=== PATIENT | male | born 1930 | race Caucasian/White ===

== ENCOUNTER 2017-04-05 15:58 | Inpatient (IN) | payer MEDICARE, OTHER ==
[2017-04-05] VITALS (9 sets, daily range): BP systolic 86–129; BP diastolic 42–70; PULSE 91–119; RESP 18–33; O2SAT 91–95
[~2017-04-05] VITALS: Ht 172.7 cm; Wt 73.3 kg
--- NOTE | 2017-04-05 16:23 | ED.REPORT ---
HPI-Dyspnea / Wheezing Date of Service Apr 05, 2017 ED Provider: Ken Ngo MD The pt is an 86 y.o. male with a hx of HTN who presents to the ED via EMS complaining of shortness of breath, onset 3 hours ago while he was resting. Associated sx include nausea today, generalized weakness, rhinorrhea, cough, diaphoresis, and shaking. His BP was over 200 today. The EMS recorded his blood sugar at 120. He denies chest pain, abdominal pain, fever, diarrhea, and dysuria. As per the son, the pt vomited a week ago that he associated with bad food but he was the only one sick. He has not vomited since then. His last hospitalization was at [facility] two and a half years ago where he had an aortoiliac stent placed and then some sort of interventional procedure for aneurysm. The pt takes benazepril only when his BP goes over 150. Nursing Notes Stated Complaint: SHORTNESS OF BREATH, LEG PAIN Chief Complaint: General Complaint Nursing Notes Reviewed: Yes Allergies: Coded Allergies: No Known Allergies (Unverified , 04/05/17) General Time Seen by MD: 16:22 Chief Complaint Shortness of breath Hx Obtained From: Patient Arrived By: Walk-in Sudden in Onset?: Yes Onset Occurred: 1 - 4 hours ago Symptom Duration: Since onset Severity: Current: No pain currently Severity: Maximum: No pain Recent Healthcare: Recent doctor visit Past Medical History Past Medical History Notes: PCP: EJ Cruz Past Medical History Reports: Hypertension Past Surgical History aotoiliac stent placement Smoking History Unknown if Ever Smoker Social History Lives with in [place]. Currently visiting/living with and daughter in [place]. Other Social History: Good social support, Ambulatory Status Cane Review of Systems Constitutional: Reports: Weakness - generalized, Denies: Fever Respiratory: Reports: Non-productive cough, Shortness of breath Cardiovascular: Denies: Chest pain Skin: Reports Diaphoresis Allergy / Immune: Reports: Rhinorrhea Complete sys rev & neg: except as marked. GI: Reports: Nausea, Denies: Abdominal pain, Diarrhea, Vomiting Female: Denies: Dysuria Neurologic: Reports: Shaking Physical Exam Initial Vital Signs Vital Signs (First) Date Time Temp Pulse Resp B/P Pulse Ox O2 Delivery O2 Flow Rate FiO2 04/05/17 16:14 37.4 112 18 129/61 95 Nasal Cannula 4 Initial VS: Reviewed Head / Eyes: Atraumatic, Normocephalic Extremities: Vascular intact, Neuro intact, No swelling, No tenderness Skin: Warm, Dry, No cyanosis Neurologic: Alert, Oriented, Nonfocal General/Constitutional: Awake, Alert, Cooperative Neck: Atraumatic, Supple, Full range of motion Respiratory / Chest: Atraumatic, Breath sounds = bilat, No respiratory distress , No rales, No rhonchi, No wheezing Crackles bilaterally Cardiovascular: Heart rate NL, Heart sounds NL, No gallop, No rubs Heart Rate / Rhythm: Positive: Irreg irregular rhythm Heart Sounds / Murmur: Positive: Murmur present... (II/ at the lower right sternal border. ) Abdomen: Atraumatic, Soft, Non-tender, No guarding, No rebound, BS normoactive No abdominal bruit. Back: Atraumatic, Full range of motion, Painless range of motion, No CVA tenderness Interpretation & Diagnostics Lab Results Interpretation Result Diagram: 04/05/17 1633 04/05/17 1633 Test 04/05/17 16:33 04/05/17 16:55 04/05/17 17:57 White Blood Count 8.8th/mm3 (3.8-10.1) Red Blood Count 4.51mil/mm3 (4.40-5.80) Hemoglobin 14.2g/dL (13.8-17.2) Hematocrit 41.1% (41.0-50.0) Mean Corpuscular Volume 91.1fL (81-100) Mean Corpuscular Hemoglobin 31.5pg (27.0-35.0) Mean Corpuscular Hemoglobin Concent 34.5% (32.0-37.0) Red Cell Distribution Width 13.0% (12.3-15.4) Platelet Count 187bil/L (150-400) Neutrophils (%) (Auto) 89.5% (40-74) Lymphocytes (%) (Auto) 6.0% (14-46) Monocytes (%) (Auto) 4.0% (4-12) Eosinophils (%) (Auto) 0.2% (0-5) Basophils (%) (Auto) 0.1% (0-3) D-Dimer 7.85mg/L FEU (<0.50) Sodium Level 138mEq/L (134-144) Potassium Level 4.1mEq/L (3.5-5.2) Chloride Level 100mEq/L (97-108) Carbon Dioxide Level 22mmol/L (18-29) Blood Urea Nitrogen 18mg/dL (8-27) Creatinine 0.77mg/dL (0.76-1.27) Estimat Glomerular Filtration Rate 102mL/min (>59) Glucose Level 126mg/dL (60-99) Calcium Level 9.9mg/dL (8.5-10.1) Magnesium Level 1.6mg/dL (1.6-2.6) Total Bilirubin 0.8mg/dL (0.0-1.2) Aspartate Amino Transf (AST/SGOT) 21U/L (0-50) Alanine Aminotransferase (ALT/SGPT) 17U/L (0-44) Alkaline Phosphatase 103U/L (25-160) Total Protein 6.9g/dL (6.4-8.4) Albumin 3.9g/dL (3.4-5.0) Procalcitonin 0.13ng/mL (0.00-0.08) Lactic Acid Level 1.7mmol/L (0.4-2.0) Urine Color Yellow (YELLOW) Urine Appearance Hazy (CLEAR,HAZY) Urine pH 7.5 (5.0-8.0) Urine Specific [place] 1.020 (1.003-1.035) Urine Protein Tracemg/dL (NEG,TRACE) Urine Glucose (UA) Negativemg/dL (NEGATIVE) Urine Ketones Negativemg/dL (NEGATIVE) Urine Occult Blood Large (NEGATIVE) Urine Nitrite Negative (NEGATIVE) Urine Bilirubin Negative (NEGATIVE) Urine Urobilinogen Normalmg/dL (NORMAL) Urine Leukocyte Esterase Negative (NEGATIVE) Urine RBC >50/hpf (0-2) Urine WBC 0-5/hpf (0-5) Urine Epithelial Cells Occasional/hpf (NONE-MOD) Urine Crystals None seen (NONE SEEN) Urine Bacteria None/hpf (NONE-FEW) Urine Hyaline Casts None/lpf (NONE) Urine Granular Casts None seen (NONE SEEN) Urine Waxy Casts None seen (NONE SEEN) Urine Red Blood Cell Casts None seen (NONE SEEN) Urine White Blood Cell Casts None seen (NONE SEEN) Urine Mucus None seen (None Seen) Urine Trichomonas None seen (NONE SEEN) Urine Yeast None (NONE SEEN) Urinalysis Comment None Urine Culture Reflexed Not indicated ECG Interpretation ECG Interpretation: Pacemaker artifacts. Sinus tachycardia. Rate 114. Atrial premature complex. No acute ST segment changes. Time: 16:31 Interpreted by: ED physician X-Ray Chest Interpretation Chest Xray Interpretation: IMPRESSION: Left basilar/retrocardiac opacity as well as potential streaky opacity in the right base. Findings are suggestive of pneumonia. Dictated by: Petra Lizama M.D. on 04/05/2017 at 16:45 Approved by: Petra Lizama M.D. on 04/05/2017 at 16:45 View: Portable, 1 view Interpretation / Wet Read by: Interpret - Radiologist CT Chest Interpretation IMPRESSION: No evidence for pulmonary embolus. Bilateral pneumonias are present left greater than right. Findings correspond to a chest x-ray. Dictated by: Rico Wilburn M.D. on 04/05/2017 at 19:05 Approved by: Rico Wilburn M.D. on 04/05/2017 at 19:09 Study type: CT pulm angiogram Interpretation / Wet Read by: Interpret - Radiologist Re-Eval/Medical Decision Med Decision/Clinical Course 86 year-old male with gen weakness vomiting and dyspnea. Has infiltrate on CXR, dimer elevated, CT angio of chest is negative. Blood cultures obtained and coverage for community acquired pneumonia started with rocephin and azithro. BP dropped while he was here, NS x1 L started. Will admit to hospitalist. Noted history of AAA but no abdominal pain or tenderness. Source of Hx: Old records Re-Evaluation/Progress #1: Time of Eval: 17:37 Re-Evaluation/Progress Note: Discussed imaging results and plan to admit. The pt understands and agrees with the plan. All questions answered. Re-Evaluation/Progress #2: Time of Eval: 17:52 Re-Evaluation/Progress Note: Discussed the plan to do a CT. The pt understands and agrees with the plan. All questions answered. Consultation : Referral / Consult Name: Betty Pace DO Consulted With: Hospitalist Call Returned at: 19:31 Hydrate Thickener Operator: Will see patient, Agrees with eval, Agrees with plan, Accepts admit Counseled Regarding: Diagnosis, Lab results, Need for admission Discharge & Departure Impression: Primary Impression: Pneumonia Pneumonia type: due to unspecified organism Laterality: bilateral Lung location: unspecified part of lung Qualified Code: J18.9 - Pneumonia, unspecified organism Disposition: ADMITTED TO HOSPITAL Referrals: OTHER,PHYSICIAN Scribe Attestation Portions of this note were transcribed by Matthew Munoz. I,, personally performed the history,physical exam and medical decision-making;I reviewed and confirmed the accuracy of the information in the transcribed note. Signed by Edison Pan. 04/05/17 Ken Ngo MD Apr 05, 2017 16:23 Matthew Munoz Apr 05, 2017 17:35
[2017-04-05 16:37] LABS: BASOPHILS % (AUTO) 0.1 % (0-3); EOSINOPHILS % (AUTO) 0.2 % (0-5); Mean Corpuscular Hemoglobin 31.5 pg (27.0-35.0); Mean Corpuscular Volume 91.1 fL (81-100); NEUTROPHILS % (AUTO) 89.5 % (40-74); Platelet Count 187 bil/L (150-400)
--- NOTE | 2017-04-05 16:47 | DRSVH ---
PROCEDURE: X-RAY CHEST ONE VIEW, PORTABLE ([id number]) INDICATIONS: FEVER TECHNIQUE: One view of the chest was acquired. COMPARISON: None. FINDINGS: Surgical changes and devices: None. Lungs and pleura: Slight appearance of increased retrocardiac and left basilar opacity. Questionable streaky opacity is present within the right base. Mediastinum: Mediastinal contours appear normal. Heart size is normal. Bones and chest wall: No suspicious bony lesions. Overlying soft tissues appear unremarkable. IMPRESSION: Left basilar/retrocardiac opacity as well as potential streaky opacity in the right base. Findings are suggestive of pneumonia. Dictated by: Petra Lizama M.D. on 04/05/2017 at 16:45 Approved by: Petra Lizama M.D. on 04/05/2017 at 16:45
[2017-04-05 17:10] LABS: TROPONIN T < 0.010 ug/L (0.0-0.011)
[2017-04-05 17:20] LABS: Magnesium 1.6 mg/dL (1.6-2.6)
[2017-04-05 18:08] LABS: APPEARANCE,URINE HAZY (CLEAR,HAZY); COLOR,URINE YELLOW (YELLOW); OCCULT BLOOD,URINE LARGE (NEGATIVE); PH,URINE 7.5 (5.0-8.0); UROBILINOGEN,URINE NORMAL (NORMAL)
--- NOTE | 2017-04-05 19:10 | DRSVH ---
PROCEDURE: CT ANGIO CHEST PULMONARY EMBOLISM ([id number]) INDICATIONS: dyspnea, tachycardia and elevated dimer TECHNIQUE: After the administration of intravenous contrast, 2 mm thick sections acquired from the pulmonary api cynthia to the posterior costophrenic angles. 3-dimensional maximum intensity projection (MIP) coronal a nd sagittal reformats were then acquired through the thorax. For radiation dose reduction, the follo wing was used: automated exposure control, adjustment of mA and/or kV according to patient size. COMPARISON: [facility], CR, XR CHEST 1VW (PORTABLE), 04/05/2017, 16:34. FINDINGS: Image quality: Good Pulmonary arteries: Pulmonary arteries are normal in size, and demonstrate no intraluminal filling d efects to suggest central pulmonary embolism. Lungs and pleura: Bibasilar left greater than right infiltrates are present consistent with pneumonia . No effusions. Mediastinum: Heart size is normal, without pericardial effusion. No mediastinal or hilar adenopathy . Thoracic aorta is normal in caliber and enhancement. Esophagus is normal in caliber, without hiat al hernia. Bones and chest wall: No suspicious bony lesions. Ribs and thoracic spine appear intact throughout. Thyroid gland is within normal limits. No axillary or supraclavicular adenopathy. Abdomen: Visualized upper abdominal solid organs appear normal in the early arterial phase of enhanc ement. IMPRESSION: No evidence for pulmonary embolus. Bilateral pneumonias are present left greater than rig ht. Findings correspond to a chest x-ray. Dictated by: Rico Wilburn M.D. on 04/05/2017 at 19:05 Approved by: Rico Wilburn M.D. on 04/05/2017 at 19:09
[2017-04-05] MEDS ORDERED: Azithromycin Inj 500 MG in Dextrose 5% w/Vial Mate 250 ML IV ONE (19:15)
[2017-04-05] MEDS ORDERED: cefTRIAXone Inj 2,000 MG in Dextrose 5% Minibag Plus 50 ML IV ONE (19:15)
[2017-04-05] MEDS ORDERED: Polyethylene Glycol (PEG) 17 Gm Powder PO PRN (19:45)
[2017-04-05] MEDS ORDERED: Alum-Mag Hydrox-Simeth 30 mL Suspension PO PRN (19:45)
[2017-04-05] MEDS ORDERED: Ondansetron 2 mg/mL 2 mL Inj IVPUSH PRN (19:45)
[2017-04-05] MEDS ORDERED: 0.9% Sodium Chloride 1,000 ML IV ONE (20:40)
--- NOTE | 2017-04-05 20:47 | PCM.HPMED ---
Subjective Date of Service Apr 05, 2017 Primary Provider: Admitting Physician: Betty Pace DO Primary Care Physician: William Attending Physician: Btety Pace DO Admit Status: From the Emergency Department, [facility] Telemetry Chief Complaint: Progressive weakness, new onset productive cough, chills, diaphoresis History of Present Illness: Mr. Guillaume is a pleasant 86-year-old gentleman with a minimal past medical history including hypertension and aortic aneurysm status post aorto iliac stent placement, presented to the emergency department, with family, with complaints of progressive weakness, weight loss, chills, fever, productive cough , diaphoresis. Initial workup in the emergency department revealed elevated d- dimer, which prompted a stat CTA which revealed no evidence for pulmonary emboli , but did reveal bilateral pneumonia with left greater than right infiltrates without presence of effusion, these findings were also evident in the chest x- ray which revealed left basilar and retrocardiac opacities with additional streaky opacities in the right base. Patient was admitted for evaluation and further treatment of suspected pneumonia, meeting sepsis criteria based on pulse of 119 and respiratory rate 33. - Hospital day 1 Patient is a pleasant 86-year-old gentleman reports no past medical history other than "intermittent" hypertension, of which, he reports taking benazepril only if needed. He notes that over the recent hours prior to admission, he experienced a coughing exacerbation with sputum production, with associated rhinorrhea, diaphoresis, chills, and fever. Denies any associated dysuria, abdominal pain, nausea, vomiting, headache, acute vision changes beyond baseline , or diarrhea. Admits to mild shortness of breath with the coughing fits, but denies any shortness of breath at baseline her prior to admission. Does note one episode of vomiting approximately one week ago. That has not recurred since , and blood was not present in the vomitus. Family is also present with the patient at time of admission, and they expressed significant concerns over weight loss of approximately 20-30 pounds over the recent year, and rapid decline in strength and mobility. Family reports that approximately one year ago to this date, patient was playing tennis, walking 3-5 miles daily, and overall better health. Patient admits to being unsteady on his feet, due to chronic vision changes, and progressively worsening weakness. Patient frequently travels between [place] and [place], and local provider is noted to be [facility], in [place]. Patient denies any other health conditions other than his hypertension and recent aortic aneurysm, denies any history of diabetes, asthma, COPD. In the ED, T 37.9, pulse 119, respiratory rate 33, BP 120/60, 93% on 4 L nasal cannula; initial labs revealed white count 8.8 with 89.5% neutrophils, hemoglobin 14.2, hematocrit 41.1, platelets 187, electro lites are within range , with glucose 126 and lactic acid 1.7, LFTs were within range, initial troponin T was negative; d-dimer was significantly elevated at 7.85, UA revealed large amount of occult blood with negative nitrite, negative leukocyte esterase, and no bacteria were seen. Initial therapies included ceftriaxone 2 g , azithromycin 500 mg, and Tessalon Perles; initial imaging included chest x- ray and CTA, which revealed left basilar and retrocardiac opacities in additional streaky opacities in the right base, indicative of pneumonia, no evidence of pulmonary emboli were seen. Patient was transported to medical floor in stable condition. Review of Systems: Complete review of systems obtained, pertinent positives and negatives as noted in history of present illness Allergies Coded Allergies: No Known Allergies (Unverified , 04/05/17) Home Medications Patient denies any home medications other than blood pressure medicine to utilize as needed, reported as benezepril Denies any use of any other daily medications including [id number] therapies Does note that he likes to use sleepy time tea PMH Per patient and family report: Hypertension Aortic aneurysm status post aortic iliac stent placement Denies any history of diabetes, asthma, COPD, coronary artery disease Surgical History Reported as: Aortic aneurysms status post aorto iliac stent placement Family History Pt admits to multiple members with cardiac etiologies and vessel disease; denies any family history of malignancies, and reports that parents lived long healthy lives; admits to family h/o smoking and tobacco use, but no known lung CA Social History 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 Hx Alcohol Use: Yes Alcoholic Drinks Per Day: one beer/wk Hx Substance Use: No Hx Tobacco Use: Yes Smoking Status: Former Smoker (quit approximately 40 years ago; reported use of camel nonfiltered) Living Arrangement: with Family (; [place]) Exam Vital Signs Vital Sign - Last Date Time Temp Pulse Resp B/P Pulse Ox O2 Delivery O2 Flow Rate FiO2 04/05/17 19:35 106 26 114/59 92 Nasal Cannula 4 04/05/17 17:33 37.9 Exam General: Alert and oriented 3; pleasant gentleman resting supine in bed in no acute distress HEENT: Atraumatic, normocephalic, sclera anicteric, membranes moist; left-sided ptosis Neck: Full range of motion without pain Cardiac: tachycardic rate approximately 100 with regular rhythm at time of examination without any appreciable murmurs Respiratory: Equal and adequate airflow all ribera without any wheeze or rhonchi ; no use of accessory muscles Chest: Atraumatic without any reproducible pain with palpation Abdomen: Soft, nontender, nondistended Extremities: No edema appreciated Skin: Warm and dry; mild tenting MSK: 5/5 strength 4/4 extremities at major joints of the shoulder, hip Neuro: Cranial nerves II-XII grossly intact, speech without slur, facial expressions equal and symmetric with exception of ptosis of left lid Psych: Appropriate mood, affect, and responses to questions; good insight and judgment; patient was able to joke and laugh during interview Lab and Diagnostics Result Diagram: 04/05/17 1633 04/05/17 1633 Assessment & Plan Mr. Guillaume is a pleasant 86-year-old gentleman with a minimal past medical history including hypertension and aortic aneurysm status post aorto iliac stent placement, presented to the emergency department, with family, with complaints of progressive weakness, weight loss, chills, fever, productive cough , diaphoresis. Initial workup in the emergency department revealed elevated d- dimer, which prompted a stat CTA which revealed no evidence for pulmonary emboli , but did reveal bilateral pneumonia with left greater than right infiltrates without presence of effusion, these findings were also evident in the chest x- ray which revealed left basilar and retrocardiac opacities with additional streaky opacities in the right base. Patient was admitted for evaluation and further treatment of suspected pneumonia, meeting sepsis criteria based on pulse of 119 and respiratory rate 33. - Hospital day 1 Sepsis, acute, present on admission, under evaluation - On admit: P119, R33; likely source PNA - UA negative for bacteria, LE, nitrites; did reveal blood - Abx: ceftriaxone + azithro; change to zosyn, levaquin, linezolid for broad coverage - Treat underlying cause - Will continue to evaluate for other possibilities:endocrine aberrancy, cardiac - troponin, TSH/fT4 - Low threshold to repeat LA, labs, fluid bolus - BCx pending PNA, community acquired, acute, present on admission, ongoing - On admit: WBC 8.8 with 89.5 neut, R33, P119 - Initial scans included chest x-ray and CTA which revealed bilateral, left greater than right, basilar retrocardiac opacities - ABx: zosyn, levaquin, linezolid; tailor as results yield - Orders included: Strep pneu urine, legionella urine, sputum cx, BCx, PCT, resp PCR - Coccidio Ab ordered; pt resides [place]; unlikley, but possible Elevated d-dimer, chronicity unknown, present on admission, under evaluation - On admit: d-dimer 7.85 - DDx: IA, stroke, AF, PE, sepsis, inflammation, malignancy - CTA r/o PE - Likely secondary to underlying infection leading to sepsis Abnormal UA finding occult blood, chronicity unknown, present on admission, monitor - UA on admit: Large amt blood; pt denied any urinary sx at time of admission - DDx: malgnancy, infection, renal masses, BPH, recent stone - Consider additional workup with U/S, repeat specimens when stable from sepsis/ infection - Continue to monitor Weakness, acute on chronic, present on admission, ongoing - Pt and family report recent 1 year of progressiv weakness - PT eval Weight loss, chronic, presumed worsening - Pt and family report 20-30lb weight loss over recent year with increase in fatigue and weakness - DDx: weakness, malignancy, deconditioning, age-related changes - Will likely need dance director strength training and rehabilitation; likely not to return to previous baseline noted to be one year ago HTN, chronic, presumed stable - Pt reports benzepril prn; family reports it should be daily medication - Holding BP medications at this time secondary to low readings - Will address as needed - ocnsider recrds request from [facility] in [place];akash comm order placed for record request History of aortic aneurysm s/p aortoiliac stent placement, chronic, presumed stable - Pt denies any maintenance medications other than his prn BP medication - No abd pain at abbey eof admission, with stable H/H PRN fever, bowel, nausea, pain DVT: SCDs; consider change to hep q8 SQ when stabilized and no evidence of HH drop Diet: General GI: H2B IVF: NS 100/ bolus prn to maintain MAP Code: DNR/DNI Patient status: Patient is admitted under inpatient status with expected length of stay greater than 2 midnights due to severity of presenting symptoms, risk of adverse event, and complexity of treatment plan. Pain Evaluation: Adequate Pain Control GI Prophylaxis: H2 susy VTE Prophylaxis: SCDs Resuscitation Status: DNR/DNI:Do Not Resuscitate/Intubate Attending Statement The patient was seen and examined together with house staff on 04/05/2017 and I agree with the history, exam and plan as outlined in the note above. Manuela Camacho DO Apr 05, 2017 20:47 Betty Pace DO Apr 06, 2017 02:25
[2017-04-05] MEDS ORDERED: levoFLOXacin Dose Per Pharmacist XX ONE (21:00)
[2017-04-05] MEDS ORDERED: Benzocaine-Menthol Lozenge 2/Pkg PO PRN (21:55)
--- NOTE | 2017-04-05 21:58 | NUR ---
ADMIT NOTE Pt admitted to room 3027 at 2155 from ED, he is alert and oriented x4, c/o "sinus headache 10/15" which he associates to "to much coughing". He is tachypneic and has frequent cough, which he says produces small amount of sputum that he swallows. Pt is on 5 L O2 sats 90-93%, afebrile, other vital signs within normal limits. Pt denies chest pain or nausea,remains in bed during assessment. He is able to make frequent changes in position independently, no bruise, wound, or redness noted on his skin. Pt reports he uses a cane to walk short distance and hiking sticks to walk long distance. He is oriented to room and different equipment, indicates understanding. Admit data base done and education provided regarding use of call light, bed control and TV control.
[2017-04-05] MEDS: Albuterol 2.5 mg/3 mL Inhalation Solution NEB PRN (22:05)
[2017-04-05] MEDS: 0.9% Sodium Chloride 1,000 ML IV SCH (22:56)
[2017-04-05] MEDS: guaiFENesin 600 mg ER12 Tablet PO SCH (23:18)
[2017-04-06] VITALS (11 sets, daily range): BP systolic 83–117; BP diastolic 37–59; PULSE 75–94; RESP 20–28; O2SAT 93–96
[2017-04-06] MEDS ORDERED: Piperacillin-Tazo 3.375 Gm Inj 3.375 GM in Dextrose 5% Minibag Plus 50 ML IV SCH ×2 (00:30→11:00)
[2017-04-06 05:50] LABS: Mean Corpuscular Hemoglobin 31.9 pg (27.0-35.0); Mean Corpuscular Volume 91.9 fL (81-100); Platelet Count 158 bil/L (150-400)
[2017-04-06 06:12] LABS: Magnesium 1.5 mg/dL (1.6-2.6); Phosphorus 2.6 mg/dL (2.5-4.9)
[2017-04-06 07:02] LABS: BASOPHILS % (AUTO) 0 % (0-3); EOSINOPHILS % (AUTO) 6 % (0-5); MONOCYTES % (AUTO) 8 % (4-12); NEUTROPHILS % (AUTO) 81 % (40-74)
[2017-04-06] MEDS: guaiFENesin 600 mg ER12 Tablet PO SCH ×2 (07:52→20:33)
[2017-04-06] MEDS: 0.9% Sodium Chloride 1,000 ML IV SCH ×2 (07:52→20:33)
[2017-04-06] MEDS: Albuterol 2.5 mg/3 mL Inhalation Solution NEB PRN ×3 (08:05→17:06)
[2017-04-06] MEDS ORDERED: guaiFENesin 600 mg ER12 Tablet PO SCH (08:30)
[2017-04-06] MEDS ORDERED: Linezolid Inj 600 MG in IV Premix 1 EACH IV SCH (08:30)
[2017-04-06] MEDS ORDERED: Levofloxacin 750 mg/150 mL D5W IV SCH (08:30)
[2017-04-06] MEDS ORDERED: Magnesium Sulf 2 Gm/50mL Water 2 GM in IV Premix 1 EACH IV ONE (11:35)
--- NOTE | 2017-04-06 11:50 | CONS ---
[address] [address] CONSULTATION REPORT PATIENT: CASSI MÉNDEZ : 1930 MR#: [id number] ADMIT: 04/05/2017 JOB ID: [id number] DATE OF SERVICE: 04/06/2017 INFECTIOUS DISEASE CONSULTATION: I thank Dr. Manuela Camacho for this timely consult. REASON FOR CONSULT: Left greater than right-sided community-acquired pneumonia. 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 He retired from dentistry several years ago and has enjoyed pretty good health by and large. 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 He notes that he was slowing down a bit a year or two ago and decided to voluntarily lose weight and he has lost about 30 pounds or so over the past year so but it has been completely voluntary. He reports he was in his usual state of health until just a few days ago when he developed cough, shortness of breath, subjective fever and very significant chills. This followed exposure to visitor to their household who had a respiratory tract infection and his significant other who also had suffered a significant respiratory tract infection within the past couple weeks. The patient notes he has also had significant cough and profound weakness associated with the fevers, chills, some sore throat and some shortness of breath. He has been in the hospital here now for two days. He believes he is already starting to improve somewhat. Note that he was initially started on ceftriaxone and azithromycin. After a day or so we switched to a combination of linezolid, Zosyn and levo, and infectious disease consult is requested at this time regarding antibiotic management. PAST MEDICAL HISTORY: 1. Hypertension. 2. Status post aortic aneurysm repair with iliac stents. SOCIAL HISTORY: The patient smoked until about 40 years ago. 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 FAMILY HISTORY: Negative for TB in first degree relatives. REVIEW OF SYSTEMS: Was done. The patient has no significant headache or visual change. He does note some significant sore throat the last two or three days. No stiff neck. He has had a cough which has been minimally productive but is starting to become more productive today. He has had no substernal chest pain or pleuritic chest pain of note. No nausea, vomiting or diarrhea. No dysuria. No swelling of the extremities. Remainder of the review of systems is negative. PHYSICAL EXAMINATION: Reveals an afebrile gentleman, temperature 36.5, pulse 80, respiratory rate 24, blood pressure 95/56. He is in no acute distress. Saturating well but requiring 7 L. Examination of the head, no temporal wasting. Eyes without conjunctivitis. Oral cavity without thrush or any evidence of pharyngitis. The neck is reasonably supple without adenopathy. Lungs are notable for rales at the bases, much worse on the right where there are many moist rales on the right side with a few crackles at the bases. Cardiac tones: Regular rate and rhythm. The abdomen is soft, nontender without organomegaly. No suprapubic fullness. No Sutton catheter. No evidence of synovitis. No evidence of cellulitis. No swelling of the extremities. Peripheral pulses are intact. He is neurologically intact as well. LABORATORIES: Include a white count 8800 when he was admitted yesterday, now 14,000. Mild left shift with 81% segs. He does have 6% eosinophils which were not present on admission but were present on today's follow up CBC. His creatinine is 0.91. His LFTs entirely normal. Procalcitonin first measurement 0.13 yesterday in the ED, now 3.5. D-dimer was high and that led to a CT scan. He has interestingly hematuria, greater than 50 red cells, but only 0-5 white cells. Urine Legionella and pneumococcal antigens are negative. A coccidiomycosis antibody has been ordered and is pending. Micro includes negative blood cultures, negative MRSA screen and negative respiratory viral PCR panel. IMAGING: Was reviewed on the computer. The CT scan done to rule out PE is quite impressive in that the patient has an extensive left lower lobe infiltrate and a much smaller right lower lobe process. This is my reading. The radiologist also reads this as bilateral pneumonia, left greater than right. The routine chest x-ray was less compelling though it did show what appeared to be a subtle retrocardiac pneumonia which on CT appears much worse. IMPRESSION: This is an elderly gentleman who is usually in excellent health who was exposed two persons recently with presumably viral but upper respiratory tract infections. He developed similar symptoms but then has gotten much worse with fevers, chills and a significant cough as well as some degree of sore throat. This by definition is a community-acquired pneumonia and the patient does not have any underlying immunosuppression so he can be treated with relatively straightforward antibiotics which typically include either a macrolide, a quinolone or doxy plus ceftriaxone according to the recent guidelines. Esoteric causes here could include coccidiomycosis which is possible given his recent residence at [place], [place] as well as [place]. It has only recently been recognized in the past two years that coccidiomycosis is endemic in certain parts of [place]. The patient is certainly at risk from his travel to [place]. Arguing against coccidiomycosis is the rapidity of the onset of his symptoms and his high procalcitonin. He has a few eosinophils which are interesting but they were not present on the first blood sample and only on the second which makes me wonder. RECOMMENDATIONS: 1. We await the Lui C antibody. 2. We are going to check a cryptococcal antigen. 3. We await the blood cultures. 4. Sputum Gram stain and culture will be ordered. 5. We recommend changing the antibiotics back to azithromycin which can be oral plus ceftriaxone as we await what will likely be a significant improvement over the next couple of days. Thank you very much for allowing us to see this fascinating patient.
--- NOTE | 2017-04-06 12:54 | PCM.PNMED ---
Subjective Date of Service Apr 06, 2017 Subjective pt still feels not well, denied SOB, coughing less than yesterday afebrile but BP running low 90s, tachycardic resolved currently on zosyn, levaquin, linezolid. MRSA, resp PCR pending. pt is alert and communicative. PCT rapidly up this AM ID consulted this AM Exam Vital Signs Vital Sign - Last Date Time Temp Pulse Resp B/P Pulse Ox O2 Delivery O2 Flow Rate FiO2 04/06/17 07:50 80 24 93 OxyMask 7.00 04/06/17 07:45 36.5 95/56 Intake and Output 04/05/17 04/05/17 04/06/17 Cumulative From/Thru 15:00 23:00 07:00 04/05/17 16:14 - 04/06/17 06:25 Intake Total 2000 ml 985 ml 2985 ml Output Total 325 ml 325 ml Balance 2000 ml 660 ml 2660 ml Intake Oral 300 ml 300 ml IV Total 2000 ml 685 ml 2685 ml Output Urine Total 325 ml 325 ml Exam NAD, intermittently coughing no JVD, MMM, no LAD RRR, nl s1, s2 no mrg basilar crackles, decreased BS S,ND,NT,normoactive BS+ warm, no edema, pulses 2/2 IVs and Medications Medications Reviewed: Medications were reviewed in detail Lab and Diagnostics Result Diagram: 04/06/1752904/06/1730 Assessment & Plan Mr. Guillaume is a pleasant 86-year-old gentleman with a minimal past medical history including hypertension and aortic aneurysm status post aorto iliac stent placement, presented to the emergency department, with family, with complaints of progressive weakness, weight loss, chills, fever, productive cough , diaphoresis. Initial workup in the emergency department revealed elevated d- dimer, which prompted a stat CTA which revealed no evidence for pulmonary emboli , but did reveal bilateral pneumonia with left greater than right infiltrates without presence of effusion, these findings were also evident in the chest x- ray which revealed left basilar and retrocardiac opacities with additional streaky opacities in the right base. Patient was admitted for evaluation and further treatment of suspected pneumonia, meeting sepsis criteria based on pulse of 119 and respiratory rate 33. acute, active, Sepsis secondary to PNA, SIRS+ HR/RR, UA negative for bacteria, LE, nitrites; did reveal blood, HD stable, MRSA swab, resp PCR neg -resolving with tx, BP 90s, will try bolus target MAP>65 -awaits infectious w/u, BCX, sputum CX, PNA, community acquired, POA, Initial scans included chest x-ray and CTA which revealed bilateral, left greater than right, basilar retrocardiac opacities. pt was started on zosyn, levaquin, linezolid -infectious w/u ngtd: Strep pneu urine, legionella urine, sputum cx, BCx, PCT, resp PCR - Coccidio Ab ordered; pt resides [place]; unlikley, but possible -appreciate ID input regarding abx, regimen. Chronic, stable, resolved Elevated d-dimer, chronicity unknown, present on admission, under evaluation - On admit: d-dimer 7.85 - DDx: NM, stroke, AF, PE, sepsis, inflammation, malignancy - CTA r/o PE - Likely secondary to underlying infection leading to sepsis Abnormal UA finding occult blood, chronicity unknown, present on admission, monitor - UA on admit: Large amt blood; pt denied any urinary sx at time of admission - DDx: malgnancy, infection, renal masses, BPH, recent stone - Consider additional workup with U/S, repeat specimens when stable from sepsis/ infection - Continue to monitor Weakness, acute on chronic, present on admission, ongoing - Pt and family report recent 1 year of progressiv weakness - PT eval Weight loss, chronic, presumed worsening - Pt and family report 20-30lb weight loss over recent year with increase in fatigue and weakness - DDx: weakness, malignancy, deconditioning, age-related changes - 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; likely not to return to previous baseline noted to be one year ago HTN, chronic, presumed stable - Pt reports benzepril prn; family reports it should be daily medication - Holding BP medications at this time secondary to low readings - Will address as needed - ocnsider recrds request from [employer] in [place];akash alberto order placed for record request History of aortic aneurysm s/p aortoiliac stent placement, chronic, presumed stable - Pt denies any maintenance medications other than his prn BP medication - No abd pain at abbey eof admission, with stable H/H PRN fever, bowel, nausea, pain DVT: SCDs Diet: General GI: H2B IVF: NS 100/ bolus prn to maintain MAP Code: DNR/DNI Patient status: likely 2-3more days GI Prophylaxis: H2 susy VTE Prophylaxis: SCDs Resuscitation Status: DNR/DNI:Do Not Resuscitate/Intubate Time spent 35min Christiano Valdez MD Apr 06, 2017 08:41
[2017-04-06] MEDS ORDERED: 0.9% Sodium Chloride 250 ML IV ONE (15:25)
--- NOTE | 2017-04-06 16:32 | NUR ---
Social Work-initial assessment: Data:See initial assessment. Pt is a 86 y/o male who was admitted on 04/05/17 for pneumonia per H&P. Pt's insurance is [facility] and [facility] and PCP is EJ Cruz. EMR reviewed. Pt's readmission score is 1. SW met with pt to discuss discharge planning, SW role explained. Pt is alert and oriented x3. Pt resides at home with his SO in [place] in a single level home where he remains independent with basic ADLS. Pt drives and does use a cane at baseline. Pt has no HH or SNF history. Pt has no shelter care insurance or VA benefits. SW discussed DPOA/ advanced directive, pt confirms this has been completed, SW encouraged a copy to be brought in. No concerns noted from RN or MD regarding capacity for self care. PT evaluation is pending. SW provided pt with discharge planning checklist and encouraged a copy to be brought in. Pt's family to transport home. SW will continue to follow. Assessment:Pt who is independent at baseline. Plan:Pt to discharge home when medically stable via POV. SW to follow up post PT evaluation. SW will continue to follow. KEEGAN Garrett Addendum: 04/06/17 at 1641 by QUINTON GRULLON Amended: Links added.
--- NOTE | 2017-04-06 18:20 | NUR ---
Hypotension Pt. has been mildly hypotensive since admit, with BPs ranging in the 90s/50s. HR stable. However, this afternoon, pts. BP was 83/37, HR 80. Pt. denies symptoms of hypotension. Md notified and 250 bolus ordered and administered. BP 20 minutes later was 94/46. Pt. continues to deny symptoms. BP at 1730 was 117/59. Will continue to monitor.
[2017-04-06] MEDS: cefTRIAXone Inj 2,000 MG in Dextrose 5% Minibag Plus 50 ML IV SCH (20:33)
[2017-04-07] VITALS (11 sets, daily range): BP systolic 102–137; BP diastolic 61–73; PULSE 74–94; RESP 16–25; O2SAT 93–98
[2017-04-07 05:47] LABS: BASOPHILS % (AUTO) 0.1 % (0-3); EOSINOPHILS % (AUTO) 1.2 % (0-5); MONOCYTES % (AUTO) 7.5 % (4-12); Mean Corpuscular Hemoglobin 31.3 pg (27.0-35.0); NEUTROPHILS % (AUTO) 84.3 % (40-74); Platelet Count 143 bil/L (150-400)
[2017-04-07 06:18] LABS: Magnesium 1.8 mg/dL (1.6-2.6)
[2017-04-07] MEDS: guaiFENesin 600 mg ER12 Tablet PO SCH ×2 (08:06→21:12)
[2017-04-07] MEDS: 0.9% Sodium Chloride 1,000 ML IV SCH ×3 (08:07→19:31)
[2017-04-07 13:09] LABS: Cryptococcal Ag Negative (Negative)
--- NOTE | 2017-04-07 13:14 | PROG NOTE ---
[address] [address] PROGRESS NOTE PATIENT: CASSI MÉNDEZ : 1930 MR#: [id number] ADMIT: 04/05/2017 JOB ID: [id number] DATE: 04/07/2017 INFECTIOUS DISEASE FOLLOW UP NOTE: REASON FOR FOLLOWUP: Community-acquired pneumonia. INTERVAL HISTORY: Overnight, the patient reports he has had no additional fevers, chills or sweats. He has a minimally productive cough and a shortness of breath has diminished though still present to some degree. No GI symptoms. PHYSICAL EXAMINATION: Temperature 37 and he has been afebrile really since admission which was two and half days ago. Pulse in the 80s, respiratory rate 16 and unlabored. Blood pressure 133/73, saturating well on 3 L. Examination of the mental status reveals it to be completely clear. His oral cavity is benign. His lungs with some rales at the right greater than left base but relatively clear with good air flow and he is saturating well on his nasal oxygen. His abdomen is benign. He is eating lunch. LABORATORIES: Include white count which has dropped to 11,000. Differential still with 84% segs. His creatinine 0.79. Lactic acid has normalized. LFTs normal. Procalcitonin was 3.5 yesterday, 2.8 today. Urinalysis had hematuria but without pyuria. Lui C antibody, crypto antigen pending. Urine pneumococcal and Legionella antigens are negative. Blood cultures are negative. MRSA screen negative. IMAGING: Imaging from yesterday was reviewed which shows cardiomegaly with some diffuse right-sided infiltrate. My impression is the film from yesterday has oddly not been read by Radiology and when compared to the film done on the , I see perhaps slightly more infiltrate in the right base but not significantly so. IMPRESSION: This patient has community-acquired pneumonia which seems to have followed a viral infection that was being shared among people in his family. At this point, we have a negative respiratory viral screen as well as negative diagnostic studies for community-acquired pneumonia but we are left with the infiltrate and productive cough as before. His fevers and chills have resolved and he clearly seems to be on the mend at this point. RECOMMENDATIONS: 1. Will continue with azithromycin by the oral route an IV ceftriaxone for least one more day. 2. If the patient continues to improve and can wean off his oxygen, consideration will be given towards a change to oral antibiotics and discharge in the near future.
--- NOTE | 2017-04-07 13:37 | PCM.PNMED ---
Subjective Date of Service Apr 07, 2017 Subjective Breathing continues to improve. Afebrile. Denies chest pain. Exam Vital Signs Vital Sign - Last Date Time Temp Pulse Resp B/P Pulse Ox O2 Delivery O2 Flow Rate FiO2 04/07/17 12:20 37.0 87 16 133/73 94 Nasal Cannula 3.00 Intake and Output 04/06/17 04/06/17 04/07/17 Cumulative From/Thru 15:00 23:00 07:00 04/05/17 16:14 - 04/06/17 21:44 Intake Total 2947 ml 5932 ml Output Total 820 ml 1145 ml Balance 2127 ml 4787 ml Intake Oral 1545 ml 1845 ml IV Total 1402 ml 4087 ml Output Urine Total 820 ml 1145 ml # Bowel Movements 0 0 Exam NAD, intermittently coughing no JVD, MMM, no LAD RRR, nl s1, s2 no mrg basilar crackles, decreased BS S,ND,NT,normoactive BS+ warm, no edema, pulses 2/2 IVs and Medications Medications Reviewed: Medications were reviewed in detail Lab and Diagnostics Result Diagram: 04/07/1752404/07/17524 X-Rays, CTs and MRIs PROCEDURE: CT ANGIO CHEST PULMONARY EMBOLISM ([id number]) INDICATIONS: dyspnea, tachycardia and elevated dimer IMPRESSION: No evidence for pulmonary embolus. Bilateral pneumonias are present left greater than right. Findings correspond to a chest x-ray. Dictated by: Rico Wilburn M.D. on 04/05/2017 at 19:05 Assessment & Plan Mr. Guillaume is a pleasant 86-year-old gentleman with a minimal past medical history including hypertension and aortic aneurysm status post aorto iliac stent placement, presented to the emergency department, with family, with complaints of progressive weakness, weight loss, chills, fever, productive cough , diaphoresis. Initial workup in the emergency department revealed elevated d- dimer, which prompted a stat CTA which revealed no evidence for pulmonary emboli , but did reveal bilateral pneumonia with left greater than right infiltrates without presence of effusion, these findings were also evident in the chest x- ray which revealed left basilar and retrocardiac opacities with additional streaky opacities in the right base. Patient was admitted for evaluation and further treatment of suspected pneumonia, meeting sepsis criteria based on pulse of 119 and respiratory rate 33. acute, active, # Sepsis secondary to PNA, resolved -Initially SIRS+ HR/RR, UA negative for bacteria, LE, nitrites; did reveal blood , HD stable, MRSA swab, resp PCR neg -resolving with tx, BP 90s, will try bolus target MAP>65 -awaits infectious w/u, BCX, sputum CX, #Pneumonia, community acquired, POA, -Initial scans included chest x-ray and CTA which revealed bilateral, left greater than right, basilar retrocardiac opacities. pt was started on zosyn, levaquin, linezolid, transition to ceftriaxone and azithromycin now -infectious w/u ngtd: Strep pneu urine, legionella urine, sputum cx, BCx, PCT, resp PCR - Coccidio Ab ordered; pt resides [place]; unlikley, but possible -appreciate ID input -Wean off oxygen.procal trending down Chronic, stable, resolved #Elevated d-dimer, chronicity unknown, present on admission, under evaluation - On admit: d-dimer 7.85 - DDx: DC, stroke, AF, PE, sepsis, inflammation, malignancy - CTA negative for PE - Likely secondary to underlying infection leading to sepsis #Microscopic hematuria/Abnormal UA finding of occult blood, chronicity unknown, present on admission, monitor - UA on admit: Large amt blood; pt denied any urinary sx at time of admission - DDx: malgnancy, infection, renal masses, BPH, recent stone - Consider additional workup with U/S if repeat specimens has significant hematuria. Repeat urinalysis requested today - Continue to monitor #Weakness, acute on chronic, present on admission, ongoing - Pt and family report recent 1 year of progressive weakness - PT eval #Weight loss, chronic, presumed worsening - Pt and family report 20-30lb weight loss over recent year with increase in fatigue and weakness - DDx: weakness, malignancy, deconditioning, age-related changes - Will likely need [facility] strength training and rehabilitation; likely not to return to previous baseline noted to be one year ago #HTN, chronic, presumed stable - Pt reports benzepril prn; family reports it should be daily medication - Holding BP medications at this time secondary to low readings - Will address as needed - ocnsider recrds request from [employer] [facility] [place] [facility] order placed for record request History of aortic aneurysm s/p aortoiliac stent placement, chronic, presumed stable - Pt denies any maintenance medications other than his prn BP medication - No abd pain at abbey eof admission, with stable H/H PRN fever, bowel, nausea, pain DVT: SCDs Diet: General GI: H2B IVF: NS 100/ bolus prn to maintain MAP Code: DNR/DNI Patient status: likely tomorrow on oral antibiotics GI Prophylaxis: H2 susy VTE Prophylaxis: SCDs Resuscitation Status: DNR/DNI:Do Not Resuscitate/Intubate John Rendon MD Apr 07, 2017 13:37
--- NOTE | 2017-04-07 15:21 | DRSVH ---
PROCEDURE: X-RAY CHEST ONE VIEW, PORTABLE ([id number]) INDICATIONS: cough TECHNIQUE: One view of the chest was acquired. COMPARISON: [facility], CT, CT ANGIO CHEST PE, 04/05/2017, 18:47. [facility] , CR, XR CHEST 1VW (PORTABLE), 04/05/2017, 16:34. FINDINGS: Surgical changes and devices: None. Lungs and pleura: No pleural effusions or pneumothorax. Lungs are clear, aside from bibasilar patch y airspace opacities Mediastinum: Mediastinal contours appear normal. Heart size is normal. Bones and chest wall: No suspicious bony lesions. Overlying soft tissues appear unremarkable. IMPRESSION: Bibasilar aspiration or pneumonia similar to prior CT scan. Correlate clinically. Dictated by: Robby CLAUDIOA Interpreted: Petra Lizama MD on 04/06/2017 at 9:33 Approved by: Petra Lizama M.D. on 04/07/2017 at 15:20
--- NOTE | 2017-04-07 15:43 | NUR ---
PLUM Patient is on 3L NC and O2 sats in low to mid 90's. Patient denies SOB but lungs sound decreased and course. Antibiotic Tx continues for PNE, sputum sample sent and urine micro as yet to be sent. BP 130's/70, telemetry SR 70-80. Patient has Hx of 20-30lbs weight loss in last year. Plan is to d/c tomorrow.
[2017-04-07] MEDS: cefTRIAXone Inj 2,000 MG in Dextrose 5% Minibag Plus 50 ML IV SCH (19:31)
[2017-04-08] VITALS (10 sets, daily range): BP systolic 142–161; BP diastolic 79–91; PULSE 63–93; RESP 20–24; O2SAT 92–97
[2017-04-08 02:32] LABS: APPEARANCE,URINE CLEAR (CLEAR,HAZY); COLOR,URINE YELLOW (YELLOW); OCCULT BLOOD,URINE NEGATIVE (NEGATIVE)
--- NOTE | 2017-04-08 02:41 | NUR ---
Respiratory/diarrhea Pt continues to have productive cough. Slight SOB with exertion. SBA to BSC. SpO2 in mid 90s on 2L NC. BP WNL; Afebrile. Pt c/o having diarrhea. Pt had multiple soft BMs today. Dr. Sorenson was notified and rec'd an order for probiotics. Pt has had 1 soft BM so far this shift. will closely monitor. hourly rounding done. bed alarm on for safety. Repeat US sent to the lab.
[2017-04-08] MEDS: 0.9% Sodium Chloride 1,000 ML IV SCH (06:08)
[2017-04-08] MEDS: guaiFENesin 600 mg ER12 Tablet PO SCH ×2 (07:56→19:58)
[2017-04-08] MEDS ORDERED: Furosemide 10 mg/mL 2 mL Inj IVPUSH ONE (09:20)
[2017-04-08 09:58] LABS: BASOPHILS % (AUTO) 0.2 % (0-3); EOSINOPHILS % (AUTO) 1.4 % (0-5); MONOCYTES % (AUTO) 7.5 % (4-12); Mean Corpuscular Hemoglobin 31.6 pg (27.0-35.0); Mean Corpuscular Volume 90.7 fL (81-100); NEUTROPHILS % (AUTO) 85.8 % (40-74); Platelet Count 186 bil/L (150-400)
[2017-04-08 10:31] LABS: Magnesium 1.7 mg/dL (1.6-2.6)
--- NOTE | 2017-04-08 12:16 | PROG NOTE ---
[address] [address] PROGRESS NOTE PATIENT: CASSI MÉNDEZ : 1930 MR#: [id number] ADMIT: 04/05/2017 JOB ID: [id number] DATE: 04/08/2017 INFECTIOUS DISEASE FOLLOWUP NOTE: REASON FOR FOLLOWUP: Pneumonia. INTERVAL HISTORY: Overnight the patient has had continued loose and sometimes liquid stool and was incontinent of stool on one occasion. He has no significant abdominal pain, however, and no longer has fevers, chills, or sweats. He reports he has no shortness of breath and minimal cough, and he has been taken off supplemental oxygen without adverse effect. Current temp 36.5, pulse 77, respiratory rate 20, blood pressure 153/83, saturating well on room air at this point. He has absolutely no distress. Oral cavity negative. Lungs relatively clear. Cardiac tones without new murmur. Abdomen benign. No skin rash. LABORATORIES: Include a white count down to 11,000, still with 85% segs. His creatinine is 0.62. His procalcitonin has dropped from 2.8 yesterday to 1.3 today, so dropping by 50% per day. His cocci antibody is pending but his crypto antigen, urine pneumococcal, and urine Legionella antigens are negative. Sputum cultures negative. Respiratory viral PCR negative. Blood cultures negative. MRSA screen all negative. Followup chest x-ray done today was reviewed on the screen. Slightly improved in terms of the bibasilar infiltrates. IMPRESSION: This patient is definitely improving with respect to his community-acquired pneumonia. At this point, I think we can go ahead and discontinue the azithromycin as he has already received 1.5 g of that, and will continue with the ceftriaxone as long as he is in the hospital. RECOMMENDATIONS: 1. DC azithromycin. 2. Will check a stool for C diff. If positive of course this will require therapy. 3. He could probably be discharged at any time from an Infectious Disease point of view, but he states he may need to stay until tomorrow until his home situation is more stable. I would keep him on the ceftriaxone until he is ready to go home and then switch to cefuroxime 500 mg p.o. b.i.d. as the sole oral therapy to finish a total of one week of treatment, which would be about three more days. 4. ID will go ahead and sign off as there are no active issues remaining here, except for the stool for C. diff which I would think would be negative. Do not hesitate to call me if there are additional issues with this patient. Thank you very much.
--- NOTE | 2017-04-08 13:30 | PCM.PNMED ---
Subjective Date of Service Apr 08, 2017 Subjective Breathing continues to improve. Weaned off oxygen. Patient reports progressive low mood. He also states he is not eating well for the last few weeks. He is losing weight. Exam Vital Signs Vital Sign - Last Date Time Temp Pulse Resp B/P Pulse Ox O2 Delivery O2 Flow Rate FiO2 04/08/17 13:21 36.3 80 20 142/85 92 04/08/17 11:20 Room Air 04/08/17 08:59 2.00 Intake and Output 04/07/17 04/07/17 04/08/17 Cumulative From/Thru 15:00 23:00 07:00 04/05/17 16:14 - 04/08/17 06:53 Intake Total 250 ml 3139 ml 1310 ml 38004 ml Output Total 800 ml 975 ml 1550 ml 4470 ml Balance -550 ml 2164 ml -240 ml 6161 ml Intake Oral 250 ml 1100 ml 200 ml 3395 ml IV Total 2039 ml 1110 ml 7236 ml Output Urine Total 800 ml 975 ml 1550 ml 4470 ml # Bowel Movements 3 1 4 Lab and Diagnostics Result Diagram: 04/08/17 0940 04/08/17 0940 X-Rays, CTs and MRIs PROCEDURE: CT ANGIO CHEST PULMONARY EMBOLISM ([id number]) INDICATIONS: dyspnea, tachycardia and elevated dimer IMPRESSION: No evidence for pulmonary embolus. Bilateral pneumonias are present left greater than right. Findings correspond to a chest x-ray. Dictated by: Rico Wilburn M.D. on 04/05/2017 at 19:05 Assessment & Plan Mr. Guillaume is a pleasant 86-year-old gentleman with a minimal past medical history including hypertension and aortic aneurysm status post aorto iliac stent placement, presented to the emergency department, with family, with complaints of progressive weakness, weight loss, chills, fever, productive cough , diaphoresis. Initial workup in the emergency department revealed elevated d- dimer, which prompted a stat CTA which revealed no evidence for pulmonary emboli , but did reveal bilateral pneumonia with left greater than right infiltrates without presence of effusion, these findings were also evident in the chest x- ray which revealed left basilar and retrocardiac opacities with additional streaky opacities in the right base. Patient was admitted for evaluation and further treatment of suspected pneumonia, meeting sepsis criteria based on pulse of 119 and respiratory rate 33. acute, active, # Sepsis secondary to PNA, resolved -Initially SIRS+ HR/RR, UA negative for bacteria, LE, nitrites; did reveal blood , HD stable, MRSA swab, resp PCR neg -resolving with tx, BP 90s, will try bolus target MAP>65 -awaits infectious w/u, BCX, sputum CX, #Pneumonia, community acquired, POA, -Initial scans included chest x-ray and CTA which revealed bilateral, left greater than right, basilar retrocardiac opacities. pt was started on zosyn, levaquin, linezolid, transition to ceftriaxone and azithromycin .cefuroxime 500 mg p.o. b.i.d. for 3 more days upon discharge per ID -infectious w/u ngtd: Strep pneu urine, legionella urine, sputum cx, BCx, PCT, resp PCR - Coccidio Ab ordered; pt resides [place]; [place], -appreciate ID input -Weaned off oxygen.procal trending down -1 episode of diarrhea reported. Cdif requested. # Suspected depression - Patient reports progressive low mood. He also states he is not eating well for the last few weeks. He is losing weight. He has a progressive decline due to that in the last few weeks.will start mirtazapine 15 mg at bedtime for mood and appetite stimulation. Chronic, stable, resolved #Elevated d-dimer, chronicity unknown, present on admission, under evaluation - On admit: d-dimer 7.85 - DDx: [place], stroke, AF, PE, sepsis, inflammation, malignancy - CTA negative for PE - Likely secondary to underlying infection leading to sepsis #Microscopic hematuria/Abnormal UA finding of occult blood, acute, present on admission, monitor - UA on admit: Large amt blood; pt denied any urinary sx at time of admission - DDx: malgnancy, infection, renal masses, BPH, recent stone - Considered additional workup with U/S initially. Repeat specimens has no hematuria. 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; likely not to return to previous baseline noted to be one year ago #HTN, chronic, presumed stable - Pt reports benzepril prn; family reports it should be daily medication - Holding BP medications at this time secondary to low readings - Will address as needed - ocnsider recrds request from [facility] in [place];akash comm order placed for record request #History of aortic aneurysm s/p aortoiliac stent placement, chronic, presumed stable - Pt denies any maintenance medications other than his prn BP medication - No abd pain at [place]bey eof admission, with stable H/H PRN fever, bowel, nausea, pain DVT: SCDs Diet: General GI: H2B IVF: NS 100/ bolus prn to maintain MAP Code: DNR/DNI Patient status: likely tomorrow on oral antibiotics GI Prophylaxis: H2 susy VTE Prophylaxis: SCDs Resuscitation Status: DNR/DNI:Do Not Resuscitate/Intubate John Rendon MD Apr 08, 2017 13:30
--- NOTE | 2017-04-08 16:28 | NUR ---
Social Work: Readiness For Discharge Data: EMR reviewed. Patient is on day 3 of hospitalization for pneumonia per H&P. Patient was discussed in morning rounds. PT has recommended SNF for STR at time of discharge. Patient will likely be ready for discharge as early as tomorrow 04/09 per MD. SW met with patient's step daughter who had questions regarding patient's discharge. Step- daughter informed SW that she visited patient and was told by patient that he was being discharged to her home today. Step-daughter states that patient is unable to return to her home until he receives some rehab. Step-daughter states that she has spoken with patient's four children and everyone is in agreement that he needs rehab. SW was informed that patient's son Jason Guillaume is DPOA and that she was going to speak with him tonight about deciding on a rehab facility in [facility]. Assessment: Patient will discharge to a SNF for short-term rehab. Plan: Patient will discharge to a SNF for STR when medically stable. Patient's son Jason will assist with decision making. Preference is a SNF in the [facility]. SW will continue to follow for needs. KEEGAN Marrero
[2017-04-08] MEDS: cefTRIAXone Inj 2,000 MG in Dextrose 5% Minibag Plus 50 ML IV SCH (20:48)
--- NOTE | 2017-04-09 01:56 | NUR ---
activity/respiratory SBA to BSC; pt weak and required minimal assist when getting OOB. had 1 very soft BM this shift. Probiotics given as ordered. Stool sample was sent to the lab and negative for Cdiff. SpO2 @93% on RA. has weak, nonproductive cough. reports slight SOB with exertion, but much better since admit. Bed alarm on for safety. Impulsive when needing to use BSC.
[2017-04-09 05:48] VITALS: BP 168/88; PULSE 80; RESP 20; O2SAT 93
[2017-04-09] MEDS: guaiFENesin 600 mg ER12 Tablet PO SCH (08:16)
--- NOTE | 2017-04-09 09:48 | DRSVH ---
PROCEDURE: X-RAY CHEST ONE VIEW, PORTABLE ([id number]) INDICATIONS: pneumonia ,f/u TECHNIQUE: One view of the chest was acquired. COMPARISON: [facility], CR, XR CHEST 1VW (PORTABLE), 04/06/2017, 5:39. FINDINGS: Surgical changes and devices: IVC filter present.. Lungs and pleura: No pleural effusions or pneumothorax. Lungs are clear, aside from bibasilar patch y airspace opacities Mediastinum: Mediastinal contours appear normal. Heart size is normal. Bones and chest wall: No suspicious bony lesions. Overlying soft tissues appear unremarkable. IMPRESSION: Bibasilar atelectasis versus aspiration or pneumonia not significantly changed. Correla te clinically. Dictated by: Robby Saavedra RRA Interpreted: Petra Lizama MD on 04/08/2017 at 10:16 Approved by: Petra Lizama M.D. on 04/09/2017 at 9:46
--- NOTE | 2017-04-09 10:13 | PCM.DIMED ---
Discharge Instructions Date of Service Apr 09, 2017 Dates of Hospitalization Apr 05, 2017 at 20:17 Discharge Diagnosis Discharge Diagnosis # Sepsis secondary to PNA, resolved #Pneumonia, community acquired, POA, # Suspected depression/poor appetite,subacute Chronic, stable, resolved #Elevated d-dimer, chronicity unknown, present on admission, #Weakness, acute on chronic, present on admission, ongoing #Weight loss, chronic, presumed worsening #HTN, chronic, presumed stable #History of aortic aneurysm s/p aortoiliac stent placement, chronic, presumed stable Diet Discharge Diet: Low fat, Low Sodium Activity Discharge Activity: Other (continue physical therapy at half-way facility.) Call your provider Call your provider for: Fever or Chills, Shortness of breath, Bleeding, Chest pain, Vomitting, Excessive diarrhea, Weakness (unilateral) Patient Instructions Patient Instructions You were hospitalized due to pneumonia. You have been treated with IV antibiotics. Please continue cefuroxime 500 mg p.o. twice daily for 3 more days . Please continue physical therapy at half-way facility.You/family reported decreased appetite, weight loss and deconditioning. I have started you on mirtazapine 15 mg by mouth at bedtime. Continue all other medications as usual. Follow-up with PCP in: 1 week (1 week after discharge from half-way facility) John Rendon MD Apr 09, 2017 10:13
[2017-04-09] MEDS ORDERED: BENZ100C8 PO ×2 (10:15→13:43)
[2017-04-09] MEDS ORDERED: CEFU500T61 PO ×2 (10:15→13:43)
[2017-04-09] MEDS ORDERED: MIRT15TA6 PO (10:15)
--- NOTE | 2017-04-09 10:52 | NUR ---
Social Work: Readiness for Discharge/Multidisciplinary Rounds D: EMR reviewed. Pt is on day 4 of hospitalization. Pt discusses in multidisciplinary rounds and is medically stable for discharge to SNF. SW met with pt and pt called son Jsaon at bedside to discuss SNF. SW provided choice list. Pt and son chose [facility] (1st) and [facility] (2nd). Pt and son aware that facilities in [place] may or may not be able to provide transport. Pt and family would like to transport pt via POV or if no one is available, are willing to pay for a taxi or wheelchair van transport. PT stated pt is safe to transfer with family via POV. T/C to Dori in admission at [facility] ([phone]) - Dori stated that she can't take any pt's discharging today without prior review. She is willing to review pt today and accept tomorrow. [facility] confirmed pt has discharge orders to discharge today. Dori asked for SW phone number in the event she is able to review and accept pt today. T/C to Marissa (weekend business liaison manager) at [facility] ([phone]) regarding referral. Marissa stated they can accept pt today if pt meets criteria after review. Marissa stated Alexa (Manager Fine Dining) will review pt's clinicals and will follow-up with [facility] once they have determined if they can accept pt. [facility] asked if they can provide transport, Marissa stated they may be able to but it is not a guarantee. [facility] faxed H&P, PT notes, RN notes, discharge order/instructions, and facesheet to [phone]. [facility] to follow-up with Marissa regarding referral. A: Pt for whom a SNF is medically necessary. P: Pt anticipated to discharge to SNF today - referral made to [facility], pending review. KEEGAN Ingram
[2017-04-09 12:35] VITALS: BP 160/81; PULSE 92; RESP 18; O2SAT 94
--- NOTE | 2017-04-09 12:44 | PCM.DC.MED ---
Discharge Summary Date of Service Apr 09, 2017 Dates of Hospitalization Date of Hospital Admission Apr 05, 2017 at 20:17 Date of Discharge: Apr 09, 2017 Providers: Admitting Physician: Betty Pace DO Primary Care Physician: William Attending Physician: John Sheffield MD Diagnosis at Time of Discharge Diagnosis at Time of Discharge # Sepsis secondary to PNA, resolved #Pneumonia, community acquired, POA, # Suspected depression/poor appetite,subacute Chronic, stable, resolved #Elevated d-dimer, chronicity unknown, present on admission, #Weakness, acute on chronic, present on admission, ongoing #Weight loss, chronic, presumed worsening #HTN, chronic, presumed stable #History of aortic aneurysm s/p aortoiliac stent placement, chronic, presumed stable Consultations ID Dr Espinosa Procedures XRay, CTs & MRIs PROCEDURE: CT ANGIO CHEST PULMONARY EMBOLISM ([id number]) INDICATIONS: dyspnea, tachycardia and elevated dimer IMPRESSION: No evidence for pulmonary embolus. Bilateral pneumonias are present left greater than right. Findings correspond to a chest x-ray. Dictated by: Rico Wilburn M.D. on 04/05/2017 at 19:05 Brief History per HPI Mr. Guillaume is a pleasant 86-year-old gentleman with a minimal past medical history including hypertension and aortic aneurysm status post aorto iliac stent placement, presented to the emergency department, with family, with complaints of progressive weakness, weight loss, chills, fever, productive cough , diaphoresis. Initial workup in the emergency department revealed elevated d- dimer, which prompted a stat CTA which revealed no evidence for pulmonary emboli , but did reveal bilateral pneumonia with left greater than right infiltrates without presence of effusion, these findings were also evident in the chest x- ray which revealed left basilar and retrocardiac opacities with additional streaky opacities in the right base. Patient was admitted for evaluation and further treatment of suspected pneumonia, meeting sepsis criteria based on pulse of 119 and respiratory rate 33. - Hospital day 1 Patient is a pleasant 86-year-old gentleman reports no past medical history other than "intermittent" hypertension, of which, he reports taking benazepril only if needed. He notes that over the recent hours prior to admission, he experienced a coughing exacerbation with sputum production, with associated rhinorrhea, diaphoresis, chills, and fever. Denies any associated dysuria, abdominal pain, nausea, vomiting, headache, acute vision changes beyond baseline , or diarrhea. Admits to mild shortness of breath with the coughing fits, but denies any shortness of breath at baseline her prior to admission. Does note one episode of vomiting approximately one week ago. That has not recurred since , and blood was not present in the vomitus. Family is also present with the patient at time of admission, and they expressed significant concerns over weight loss of approximately 20-30 pounds over the recent year, and rapid decline in strength and mobility. Family reports that approximately one year ago to this date, patient was playing tennis, walking 3-5 miles daily, and overall better health. Patient admits to being unsteady on his feet, due to chronic vision changes, and progressively worsening weakness. Patient frequently travels between [place] and [place], and local provider is noted to be [facility], in [place]. Patient denies any other health conditions other than his hypertension and recent aortic aneurysm, denies any history of diabetes, asthma, COPD. In the ED, T 37.9, pulse 119, respiratory rate 33, BP 120/60, 93% on 4 L nasal cannula; initial labs revealed white count 8.8 with 89.5% neutrophils, hemoglobin 14.2, hematocrit 41.1, platelets 187, electro lites are within range , with glucose 126 and lactic acid 1.7, LFTs were within range, initial troponin T was negative; d-dimer was significantly elevated at 7.85, UA revealed large amount of occult blood with negative nitrite, negative leukocyte esterase, and no bacteria were seen. Initial therapies included ceftriaxone 2 g , azithromycin 500 mg, and Tessalon Perles; initial imaging included chest x- ray and CTA, which revealed left basilar and retrocardiac opacities in additional streaky opacities in the right base, indicative of pneumonia, no evidence of pulmonary emboli were seen. Patient was transported to medical floor in stable condition. Hospital Course Mr. Guillaume is a pleasant 86-year-old gentleman with a minimal past medical history including hypertension and aortic aneurysm status post aorto iliac stent placement, presented to the emergency department, with family, with complaints of progressive weakness, weight loss, chills, fever, productive cough , diaphoresis. Initial workup in the emergency department revealed elevated d- dimer, which prompted a stat CTA which revealed no evidence for pulmonary emboli , but did reveal bilateral pneumonia with left greater than right infiltrates without presence of effusion, these findings were also evident in the chest x- ray which revealed left basilar and retrocardiac opacities with additional streaky opacities in the right base. Patient was admitted for evaluation and further treatment of suspected pneumonia, meeting sepsis criteria based on pulse of 119 and respiratory rate 33. acute, active, # Sepsis secondary to PNA, resolved -Initially SIRS+ HR/RR, UA negative for bacteria, LE, nitrites; did reveal blood , HD stable, MRSA swab, resp PCR neg cefuroxime 500 mg p.o. b.i.d. for 3 more days upon discharge per ID #Pneumonia, community acquired, POA, -Initial scans included chest x-ray and CTA which revealed bilateral, left greater than right, basilar retrocardiac opacities. pt was started on zosyn, levaquin, linezolid, transition to ceftriaxone and azithromycin .cefuroxime 500 mg p.o. b.i.d. for 3 more days upon discharge per ID -infectious w/u ngtd: Strep pneu urine, legionella urine, sputum cx, BCx, PCT, resp PCR - Coccidio Ab ordered; pt resides [place]; [place], -Weaned off oxygen.procal trending down -1 episode of diarrhea reported. C dif requested. # Suspected depression - Patient reports progressive low mood. He also states he is not eating well for the last few weeks. He is losing weight. He has a progressive decline due to that in the last few weeks. started mirtazapine 15 mg at bedtime for mood and appetite stimulation. Chronic, stable, resolved #Elevated d-dimer, chronicity unknown, present on admission, under evaluation - On admit: d-dimer 7.85 - DDx: [place], stroke, AF, PE, sepsis, inflammation, malignancy - CTA negative for PE - Likely secondary to underlying infection leading to sepsis #Microscopic hematuria/Abnormal UA finding of occult blood, acute, present on admission, monitor - UA on admit: Large amt blood; pt denied any urinary sx at time of admission - DDx: malgnancy, infection, renal masses, BPH, recent stone - Considered additional workup with U/S initially. Repeat specimens has no hematuria. #Weakness, acute on chronic, present on admission, ongoing - Pt and family report recent 1 year of progressive weakness - PT eval, recommend SNF ,discharge to SNF #Weight loss, chronic, presumed worsening - Pt and family report 20-30lb weight loss over recent year with increase in fatigue and weakness - DDx: weakness, malignancy, deconditioning, age-related changes - Will likely need senior living strength training and rehabilitation; likely not to return to previous baseline noted to be one year ago #HTN, chronic, presumed stable #History of aortic aneurysm s/p aortoiliac stent placement, chronic, presumed stable Code: DNR/DNI discharge to SNF Exam Vital Signs (Last) Date Time Temp Pulse Resp B/P Pulse Ox O2 Delivery O2 Flow Rate FiO2 04/09/17 05:48 36.9 80 20 168/88 93 Room Air 04/08/17 08:59 2.00 Exam NAD, intermittently coughing no JVD, MMM, no LAD RRR, nl s1, s2 no mrg basilar crackles, decreased BS S,ND,NT,normoactive BS+ warm, no edema, pulses 2/2 Test 04/05/17 16:33 04/05/17 21:09 04/05/17 22:38 04/06/17 05:30 D-Dimer 7.85mg/L FEU (<0.50) Urine Legionella pneumophilia Ag Negative (Negative) Troponin T 0.014ug/L (0.0-0.011) Phosphorus Level 2.6mg/dL (2.5-4.9) Thyroid Stimulating Hormone (TSH) 0.526uIU/mL (0.450-4.500) Free Thyroxine 1.31ng/dL (0.82-1.77) Cryptococcus Antigen Negative (Negative) Test 04/06/17 12:58 04/06/17 21:18 04/07/17 05:25 04/08/17 02:15 Hold Urine Received (Received) Lactic Acid Level 1.8mmol/L (0.4-2.0) Hematology Comments Urine Color Yellow (YELLOW) Urine Appearance Clear (CLEAR,HAZY) Urine pH 7.0 (5.0-8.0) Urine Specific [place] 1.015 (1.003-1.035) Urine Protein Negativemg/dL (NEG,TRACE) Urine Glucose (UA) Negativemg/dL (NEGATIVE) Urine Ketones Tracemg/dL (NEGATIVE) Urine Occult Blood Negative (NEGATIVE) Urine Nitrite Negative (NEGATIVE) Urine Bilirubin Negative (NEGATIVE) Urine Urobilinogen 2.0mg/dL (NORMAL) Urine Leukocyte Esterase Negative (NEGATIVE) Urine RBC 0-2/hpf (0-2) Urine WBC 0-5/hpf (0-5) Urine Epithelial Cells Occasional/hpf (NONE-MOD) Urine Crystals None seen (NONE SEEN) Urine Bacteria Few/hpf (NONE-FEW) Urine Hyaline Casts None/lpf (NONE) Urine Granular Casts None seen (NONE SEEN) Urine Waxy Casts None seen (NONE SEEN) Urine Red Blood Cell Casts None seen (NONE SEEN) Urine White Blood Cell Casts None seen (NONE SEEN) Urine Mucus None seen (None Seen) Urine Trichomonas None seen (NONE SEEN) Urine Yeast None (NONE SEEN) Urinalysis Comment None Urine Culture Reflexed Not indicated Test 04/08/17 09:40 White Blood Count 11.7th/mm3 (3.8-10.1) Red Blood Count 4.21mil/mm3 (4.40-5.80) Hemoglobin 13.3g/dL (13.8-17.2) Hematocrit 38.2% (41.0-50.0) Mean Corpuscular Volume 90.7fL (81-100) Mean Corpuscular Hemoglobin 31.6pg (27.0-35.0) Mean Corpuscular Hemoglobin Concent 34.8% (32.0-37.0) Red Cell Distribution Width 13.0% (12.3-15.4) Platelet Count 186bil/L (150-400) Neutrophils (%) (Auto) 85.8% (40-74) Lymphocytes (%) (Auto) 4.9% (14-46) Monocytes (%) (Auto) 7.5% (4-12) Eosinophils (%) (Auto) 1.4% (0-5) Basophils (%) (Auto) 0.2% (0-3) Sodium Level 133mEq/L (134-144) Potassium Level 4.1mEq/L (3.5-5.2) Chloride Level 100mEq/L (97-108) Carbon Dioxide Level 21mmol/L (18-29) Blood Urea Nitrogen 16mg/dL (8-27) Creatinine 0.62mg/dL (0.76-1.27) Estimat Glomerular Filtration Rate 131mL/min (>59) Glucose Level 131mg/dL (60-99) Calcium Level 9.6mg/dL (8.5-10.1) Magnesium Level 1.7mg/dL (1.6-2.6) Total Bilirubin 0.5mg/dL (0.0-1.2) Aspartate Amino Transf (AST/SGOT) 24U/L (0-50) Alanine Aminotransferase (ALT/SGPT) 17U/L (0-44) Alkaline Phosphatase 101U/L (25-160) Total Protein 6.0g/dL (6.4-8.4) Albumin 3.3g/dL (3.4-5.0) Prealbumin 9mg/dL (20-40) Procalcitonin 1.27ng/mL (0.00-0.08) Discharge Medications Discharge Medications Cefuroxime Axetil (Cefuroxime) 500 Mg Tablet 500 MG PO BID Prescribed by: JOHN SHEFFIELD MD Mirtazapine (Mirtazapine) 15 Mg Tablet 15 MG PO HS Prescribed by: JOHN SHEFFIELD MD As needed Benzonatate (Benzonatate) 100 Mg Capsule 100 MG PO TID PRN PRN For Cough Prescribed by: JOHN SHEFFIELD MD Followup Plan Disposition: SNF Discharge Diet: Low fat, Low Sodium Discharge Activity: Other ([facility] Patient Instructions You were hospitalized due to pneumonia. You have been treated with IV antibiotics. Please continue cefuroxime 500 mg p.o. twice daily for 3 more days . Please [facility].You/family reported decreased appetite, weight loss and deconditioning. I have started you on mirtazapine 15 mg by mouth at bedtime. Continue all other medications as usual. Follow-up with PCP in: 1 week (1 week after [facility]) Time spent 35 minutes John Sheffield MD Apr 09, 2017 12:44
--- NOTE | 2017-04-09 13:42 | NUR ---
Social Work: Discharge D: EMR reviewed. Pt is on day 4 of hospitalization. Pt discussed in multidisciplinary rounds and is medically stable for discharge to SNF. SLY met with pt and pt called son Jason at bedside to discuss SNF. MD order received for SNF. SW provided choice list. Pt and son chose [facility]. T/C from [facility] who confirmed they can accept pt today but can't provide transport. T/C to pt's son Jason regarding acceptance and transport. Jason stated that his brother Augustine will provide pt transport at 1430 today. LSY informed Jason that Augustine will be given transfer packet that must be given to [facility] in admission upon arrival to [facility]. Jason agreeable and stated he will relay message to Augustine. T/C to [facility] ([phone]) confirming pt's transport time of 1430 from [facility] with son Augustine. Marissa agreeable. Marissa requested SW fax PASRR and rx in addition to discharge ppw/instructions. SLY faxed ppw to new fax number (per Marissa's request) [phone]. A: Pt for whom a SNF is medically necessary. P: Pt to discharge to [facility] today via pt's son Augustine. SLY faxed discharge ppw, PASRR, and rx to [phone]. SLY prepared transfer packet and instructed pt's family and RN to be sure to give transfer packet to [facility] in admissions upon arrival. UA/RN updated on transfer time and discharge plan. Pt and family updated on transfer time and discharge plan. All agreeable. No further needs at this time. KEEGAN Ingram
[2017-04-09] MEDS ORDERED: MIRT7.5T8 PO (13:43)
--- NOTE | 2017-04-09 14:45 | NUR ---
Discharge Report called to DANE Friedman at [facility]. IV DCd intact and all belongings with pt. Pt denies pain and SOB when at rest. Escorted out of Unit via WC, VS stable. Jamie Bradshaw is providing transport to [facility].
== END 2017-04-09 14:45 | DRG 871 ==
LOC: EDBD 15:58 → SED 15:58 → MPC 20:17
PROVIDERS: ADMIT Internal Medicine; ATTEND Internal Medicine
DX: A41.9 Sepsis, unspecified organism (principal); J18.9 Pneumonia, unspecified organism; I10 Essential (primary) hypertension; Z66 Do not resuscitate; R31.9 Hematuria, unspecified; R63.4 Abnormal weight loss; Z68.24 Body mass index [BMI] 24.0-24.9, adult; Z95.828 Presence of other vascular implants and grafts